=== PATIENT | female | born 1955 | race Caucasian/White ===

== ENCOUNTER → 2025-07-22 | Outpatient (CLI) | payer MEDICARE | LOC: M WHC 07:56 | PROVIDERS: ATTEND Surgery | DX: R92.8 Other abnormal and inconclusive findings on diagnostic imaging of breast (principal); N63.10 Unspecified lump in the right breast, unspecified quadrant ==

== ENCOUNTER → 2025-08-04 | Outpatient (CLI) | payer MEDICARE ==
[2025-08-04 10:03] VITALS: TEMP 98.4
[2025-08-04 11:32] VITALS: BP 148/82; O2SAT 100
== END ==
LOC: M WHCPRO 09:54
PROVIDERS: ATTEND Surgery
DX: C50.511 Malignant neoplasm of lower-outer quadrant of right female breast (principal); R92.8 Other abnormal and inconclusive findings on diagnostic imaging of breast; N63.13 Unspecified lump in the right breast, lower outer quadrant

== ENCOUNTER → 2025-08-05 | Outpatient (REF) | payer MEDICARE ==
[2025-08-05 12:03] LABS: HIV SCREEN CENTAUR SOURCE NEGATIVE (NEGATIVE)
[2025-08-05 12:11] LABS: HEPATITIS C VIRUS ABY INDEX < 0.02 INDEX (<0.8)
== END ==
LOC: M PLALAB 08:41 → EDSTATUS 08:49 → M PLALAB 08:52
PROVIDERS: ATTEND Surgery
DX: Z13.0 Encounter for screening for diseases of the blood and blood-forming organs and certain disorders involving the immune mechanism (principal)

== ENCOUNTER → 2025-08-10 | Outpatient (CLI) | payer MEDICARE | LOC: M PLALAB 11:56 | PROVIDERS: ATTEND Surgery | DX: C50.511 Malignant neoplasm of lower-outer quadrant of right female breast (principal) ==

== ENCOUNTER → 2025-08-25 | Outpatient (CLI) | payer MEDICARE ==
[~2025-08-25] MED LIST: OXYC-517 PO
[2025-08-25 09:48] VITALS: TEMP 98
[2025-08-25 10:58] VITALS: BP 136/84; O2SAT 100
== END ==
LOC: M WHCPRO 09:31
PROVIDERS: ATTEND Surgery
DX: C50.511 Malignant neoplasm of lower-outer quadrant of right female breast (principal)
CPT/HCPCS: 19285; 19286; 77065; A4648; G0463

== ENCOUNTER 2025-09-02 06:30 | Day surgery (SDC) | payer MEDICARE ==
[~2025-09-02] VITALS: Ht 152.4 cm; Wt 71.6 kg
[2025-09-02] MEDS ORDERED: MIDAZOLAM INJ 2 MG/2 ML VIAL As Ordered ONE (07:15)
[2025-09-02] MEDS ORDERED: LIDOCAINE 2% 100 MG/5 ML SDV (FOR ANES.) As Ordered ONE (07:15)
[2025-09-02] MEDS ORDERED: ACETAMINOPHEN 1000MG/100ML IV BAG As Ordered ONE (07:15)
[2025-09-02] MEDS ORDERED: dexAMETHasone 4 MG/ML 1 ML VIAL As Ordered ONE (07:15)
[2025-09-02] MEDS ORDERED: ONDANSETRON 4MG/2ML VIAL As Ordered ONE (07:15)
[2025-09-02] MEDS: SCOPOLAMINE 1MG TRANSDERMAL PATCH TOP ONE (07:30)
[2025-09-02] MEDS: LR 1,000 ML IV SCH (07:31)
[2025-09-02] MEDS: ceFAZolin SOD 2 GM IV ONCE IV ONE (07:59)
[2025-09-02] MEDS ORDERED: HYDROMORPHONE HCL 0.5 MG/0.5 ML SYRINGE IV PRN (09:50)
[2025-09-02] MEDS ORDERED: OXYC-517 PO (09:53)
[2025-09-02] MEDS: ONDANSETRON 4MG/2ML VIAL IV PRN (10:33)
[2025-09-02 12:36] VITALS: BP 133/79; TEMP 97.2; O2SAT 97
== END 2025-09-02 12:50 | disposition home or self-care (01) ==
LOC: M SDC 06:30 → M RADPRO 07:00 → M SDC 12:50
PROVIDERS: ATTEND Surgery
DX: D05.11 Intraductal carcinoma in situ of right breast (principal)
CPT/HCPCS: 19301; 38525; 38900; 88305; 88307; A9520; J0131; J0688; J1100; J2250; J2405; J3010

== ENCOUNTER → 2025-09-24 | Outpatient (CLI) | payer MEDICARE | LOC: M ONCR 14:17 | PROVIDERS: ATTEND Radiology Radiation Oncology | DX: C50.511 Malignant neoplasm of lower-outer quadrant of right female breast (principal); Z17.0 Estrogen receptor positive status [ER+]; Z17.21 Progesterone receptor positive status; Z17.32 Human epidermal growth factor receptor 2 negative status; Z98.890 Other specified postprocedural states; Z90.49 Acquired absence of other specified parts of digestive tract; Z90.721 Acquired absence of ovaries, unilateral; Z90.79 Acquired absence of other genital organ(s); Z80.3 Family history of malignant neoplasm of breast; Z80.6 Family history of leukemia ==

== ENCOUNTER 2025-10-19 11:00 | Outpatient (RCR) | payer MEDICARE ==
[2025-10-19] MEDS ORDERED: ANAS1TAB2 PO (11:45)
== END 2025-11-10 ==
LOC: M ONCR 11:00
PROVIDERS: ATTEND General Practice
DX: Z51.0 Encounter for antineoplastic radiation therapy (principal); C50.411 Malignant neoplasm of upper-outer quadrant of right female breast